=== PATIENT | male | born 1960 | race Caucasian/White ===

== ENCOUNTER 2018-11-08 11:57 | Observation (INO) ==
[2018-11-08] MEDS ORDERED: 0.9 % Sodium Chloride 1,000 ML ONE (12:23)
[2018-11-08] MEDS ORDERED: 0.9 % Sodium Chloride 1,000 ML IVC ONE (12:28)
--- NOTE | 2018-11-08 12:32 | Emergency Department Note ---
Disposition Clinical Impression: GI bleed Qualifiers: GI bleed type/associated pathology: unspecified gastrointestinal hemorrhage type Qualified Code(s): K92.2 - Gastrointestinal hemorrhage, unspecified Hypotension Qualifiers: Hypotension type: unspecified hypotension type Qualified Code(s): I95.9 - Hypotension, unspecified Renal failure Qualifiers: Renal failure chronicity: acute on chronic Acute renal failure type: unspecified Chronic kidney disease stage: unspecified stage Qualified Code(s): N17.9 - Acute kidney failure, unspecified; N18.9 - Chronic kidney disease, unspecified Disposition: Admitted As Inpatient Condition: Fair Time of Disposition: 14:21 General Adult HPI - General Stated complaint: Sepsis Eval Time Seen by Provider: 11/08/18 12:15 Nursing Notes Reviewed: Yes Vital Signs Reviewed: Yes - History of Present Illness HPI Narrative: Patient did have aortic valve replacement in 2003 and does take warfarin and does go to the Coumadin clinic but today was at the thyroid clinic and it was noticed that his blood pressure was 85 systolic. He presents today with feelings of weakness which is generalized and a been going on for one week and constant and progressive and he also has had rectal bleeding during that time. He denies any fever. No respiratory symptoms. No medication has been used for the symptoms. Social history: Nonsmoker but does chew tobacco. Very occasional alcohol. No history of injection drug use - Related Data Home Medications Medication Instructions Recorded Confirmed Albuterol Sulfate [Albuterol 2 puff IH Q4HR PRN 11/08/18 11/08/18 Inhaler] Cholecalciferol (D-3) [Vitamin D] 1,000 unit PO DAILY 11/08/18 11/08/18 Latanoprost [Xalatan] 1 drop BOTH EYES HS 11/08/18 11/08/18 Levothyroxine Sodium [Levoxyl] 125 mcg PO DAILY 11/08/18 11/08/18 Lisinopril [Zestril] 20 mg PO DAILY 11/08/18 11/08/18 Magnesium Oxide [Magnesium] 400 mg PO DAILY 11/08/18 11/08/18 Metoprolol [Lopressor] 100 mg PO BID 11/08/18 11/08/18 Mometasone/Formoterol [Dulera 100 1 puff IH BID 11/08/18 11/08/18 Mcg/5 Mcg Inhaler] [place]-3/Dha/Epa/Fish Oil [Cvs Fish 1 cap PO BID 11/08/18 11/08/18 Oil 1,000 mg Softgel] Omeprazole [PriLOSEC] 20 mg PO DAILY 11/08/18 11/08/18 Paroxetine HCl [Paxil] 20 mg PO DAILY 11/08/18 11/08/18 Renal Vitamin [Renal Caps Softgel] 1 mg PO DAILY 11/08/18 11/08/18 Rosuvastatin Calcium [Crestor] 10 mg PO HS 11/08/18 11/08/18 Tamsulosin HCl [Flomax] 0.4 mg PO DAILY 11/08/18 11/08/18 Warfarin [Coumadin] 3 mg PO SUTUTHSA 11/08/18 11/08/18 Warfarin [Coumadin] 6 mg PO MOWEFR 11/08/18 11/08/18 Zolpidem [Ambien] 10 mg PO HS 11/08/18 11/08/18 Allergies Allergy/AdvReac Type Severity Reaction Status Date / Time morphine AdvReac Palpitation Verified 11/08/18 14:06 s Review of Systems: Constitutional: No fever Vision: No blurred vision ENT: No rhinorrhea Respiratory: No cough Allergic: No allergies : No blood in urine GI: + blood in stool Hematologic: No bruising Dermatologic: No skin rash Musculoskeletal: No pain in the extremities Neuro: No numbness of the extremities Past Medical History - Past Medical History Medical history: Reports: no medical history Surgical history: Reports: appendectomy, heart valve replacement, orthopedic, other Psychiatric history: Reports: depression - Social History Smoking Status: Never smoker Smokeless Tobacco Status: No Alcohol use: Reports: none Drug use: Reports: none Physical Exam CONSTITUTIONAL: Alert and oriented X3, well-nourished, tired and weak appearing, in no apparent distress HEAD: Normocephalic; atraumatic. EYES: PERRL, no scleral icterus. NOSE: The nose is normal in appearance without rhinorrhea RESP: Normal chest excursion with respiration; breath sounds clear and equal bilaterally; no wheezes, rhonchi, or rales CARD: Regular rhythm, without murmurs, rub or gallop ABD: Non-distended; non-tender, soft,without rigidity, rebound or guarding SKIN: Normal for age and race; warm and dry; no apparent lesions Rectal: No masses or lesions. Stool is brown on the glove Course Vital Signs Temperature 97.8 F 11/08/18 12:09 Pulse Rate 58 11/08/18 12:09 Respiratory Rate 18 11/08/18 12:09 Blood Pressure 86/62 11/08/18 12:09 O2 Sat by Pulse Oximetry 100 11/08/18 12:09 Temperature 97.8 F 11/08/18 12:09 Pulse Rate 59 11/08/18 13:06 Respiratory Rate 18 11/08/18 13:06 Blood Pressure 96/64 11/08/18 13:06 O2 Sat by Pulse Oximetry 100 11/08/18 13:06 Oxygen Delivery Oxygen Delivery Room Air Medical Decision Making - MDM Narrative Medical decision making narrative: Concern for GI bleed and the patient is given 1 L IV fluid as the current blood pressure is 86 systolic, CBC, BMP, type and screen, INR as he is on warfarin and I did review the previous records showing his INR was 2.1 on October 27 of this year. Results pending. The patient will be admitted. He is mentating well. 1232 I did review the patient's test results. He is not anemic but was hypotensive and does have a GI bleed and he is anticoagulated with a elevated INR. The patient because of his normal hemoglobin will have his Coumadin held by will not actively reverse at this time with PCC because he does have a prosthetic aortic valve and this will place him at risk of clot and he is hemodynamically stable with the IV fluids and based on his hemoglobin level. He does have acute on chronic renal failure. I did write for intravenous protonix 40mg. I will speak with the hospitalist about admission. 1353 I did review the patient's test results and spoke with the hospitalist accepts the patient for admission the patient does have worsening renal failure, he does have a GI bleed. We are in agreement with holding off on any reversal of anticoagulation at this time and we will just hold the warfarin and monitor the patient closely. 1421 - Medical Records Medical records reviewed: Yes I reviewed the patient's medical records. - Lab Data Lab results reviewed: Yes I reviewed the patient's lab results. Result diagrams: 11/08/18 12:25 11/08/18 12:25 Lab Results 11/08/18 11/08/18 11/08/18 Range/Units 12:24 12:25 12:25 WBC 9.2 (4.3-11.1) K/mcL RBC 5.24 (4.19-5.50) M/mcL Hgb 15.1 (12.9-16.9) g/dL Hct 46.2 (37.5-50.1) % MCV 88.2 (83.0-100.0) fL MCH 28.8 (28.0-33.3) pg MCHC 32.7 (31.6-35.5) g/dL RDW 14.0 (11.5-14.5) % Plt Count 171 (140-400) K/mcL MPV 11.7 (9.4-12.4) fL PT (9.4-12.1) Seconds INR Sodium 132 L (136-145) mEq/L Potassium 4.3 (3.5-5.1) mEq/L Chloride 102 (98-107) mEq/L Carbon Dioxide 23 (23-29) mEq/L BUN 32 H (6-20) mg/dL Creatinine 1.70 H (0.70-1.30) mg/dL Est GFR ( Amer) 51 L (> 60) Est GFR (Non-Af Amer) 42 L (> 60) BUN/Creatinine Ratio 19 (6-26) Glucose 383 H (70-105) mg/dL Calculated Osmolality 297 (280-300) Calcium 8.9 (8.6-10.3) mg/dL Stool Occult Bld Scrn Positive A (Negative) Specimen Rejected Blood Type Antibody Screen 11/08/18 11/08/18 11/08/18 Range/Units 12:25 12:25 12:54 WBC (4.3-11.1) K/mcL RBC (4.19-5.50) M/mcL Hgb (12.9-16.9) g/dL Hct (37.5-50.1) % MCV (83.0-100.0) fL MCH (28.0-33.3) pg MCHC (31.6-35.5) g/dL RDW (11.5-14.5) % Plt Count (140-400) K/mcL MPV (9.4-12.4) fL PT 58.4 H* (9.4-12.1) Seconds INR 5.2 H* Sodium (136-145) mEq/L Potassium (3.5-5.1) mEq/L Chloride (98-107) mEq/L Carbon Dioxide (23-29) mEq/L BUN (6-20) mg/dL Creatinine (0.70-1.30) mg/dL Est GFR ( Amer) (> 60) Est GFR (Non-Af Amer) (> 60) BUN/Creatinine Ratio (6-26) Glucose (70-105) mg/dL Calculated Osmolality (280-300) Calcium (8.6-10.3) mg/dL Stool Occult Bld Scrn (Negative) Specimen Rejected Volume Blood Type B NEGATIVE Antibody Screen NEGATIVE - Radiology Data Radiology results reviewed: Yes I reviewed the patient's radiology results. Critical Care Time Critical Care Time: Yes Total Critical Care Time: 30 Attestation: I did spend 30 minutes of critical care time with this patient was hypotensive, had a GI bleed on anticoagulation, management of elevated INR, acute on chronic renal failure, administration of intravenous protonix and discussion with the hospitalist
[2018-11-08 12:37] LABS: Hematocrit 46.2 % (37.5-50.1); Hemoglobin 15.1 g/dL (12.9-16.9); Mean Corpuscular HGB Conc 32.7 g/dL (31.6-35.5); Mean Corpuscular Hemoglobin 28.8 pg (28.0-33.3); Mean Corpuscular Volume 88.2 fL (83.0-100.0); Mean Platelet Volume 11.7 fL (9.4-12.4); Platelet Count 171 K/mcL (140-400); Red Blood Count 5.24 M/mcL (4.19-5.50)
[2018-11-08 13:02] LABS: Calcium 8.9 mg/dL (8.6-10.3); Potassium 4.3 mEq/L (3.5-5.1)
[2018-11-08 13:43] LABS: INR 5.2; Prothrombin Time 58.4 Seconds (9.4-12.1)
[2018-11-08] MEDS ORDERED: Pantoprazole 40 MG VIAL IVP ONE (13:46)
[2018-11-08] MEDS ORDERED: Naloxone 0.4 MG/ML INJ IVP PRN (14:11)
[2018-11-08] MEDS ORDERED: Ondansetron 4 MG/2 ML VIAL IVP PRN (14:11)
[2018-11-08] MEDS ORDERED: 0.9 % Sodium Chloride 500 ML IVC PRN (14:29)
--- NOTE | 2018-11-08 14:34 | Internal Med History&Physical ---
Date of Encounter: 11/08/18 Time of Encounter: 14:00 Internal Medicine - H&P: HPI Chief complaint: Hematochezia Admitted From: Home History of present illness: Mr. Cheung is a 58 year old male with history of aortic valve replacement on Coumadin, hypothyroidism, hypertension, CKD stage 3, fatty liver, who presented from anticoagulation clinic due to low BP. He also complained of intermittent hematochezia/BRBPR for the last week or so as well. Associated with generalized weakness. Denies any chest pain, lightheadedness, shortness of breath, cough, sputum production, fever/chills, palpitation, or leg swelling. No abdominal pain, nausea/vomiting, melena, hematemesis, or hemoptysis. No focal weakness/numbness or change in vision. Last EGD/colonoscopy in October 2013 at [facility] which were both unremarkable reportedly. In the ED, he was afebrile with BP 86/62. FOBT was positive with supratherapeutic INR of 5.2. However, Hb was 15.1 with normal Plt count. Cr 1.7 (baseline 1.3-4). He was given 1 L of normal saline as a bolus with subsequent improvement in his BP, Protonix 40 mg IV, and admitted for further management. Past Med Surg Social Fam HX - Past Medical History Medical history: COPD, dialysis, hypertension Additional medical history: NEUROPATHY. EMPHYSEMA. HEMORRHAGE OF GI TRACT Psychiatric history: depression - Past Surgical History Surgical History: appendectomy, heart valve replacement, orthopedic, other Additional surgical history: LAMINECTOMY, R knee, 2 open heart, 2 neck surgeries. chronic neck pain. broken neck x 2. Aortic valve replacement - Social History Smoking Status: Never smoker Smokeless Tobacco Status: Yes Alcohol use: rarely Drug use: none - Additional Family History Additional family history: No family history of GI malignancy Internal Medicine - H&P: Meds Albuterol Sulfate [Albuterol Inhaler] 2 puff IH Q4HR PRN 11/08/18 [History] Cholecalciferol (D-3) [Vitamin D] 1,000 unit PO DAILY 11/08/18 [History] Latanoprost [Xalatan] 1 drop BOTH EYES HS 11/08/18 [History] Levothyroxine Sodium [Levoxyl] 125 mcg PO DAILY 11/08/18 [History] Lisinopril [Zestril] 20 mg PO DAILY 11/08/18 [History] Magnesium Oxide [Magnesium] 400 mg PO DAILY 11/08/18 [History] Metoprolol [Lopressor] 100 mg PO BID 11/08/18 [History] Mometasone/Formoterol [Dulera 100 Mcg/5 Mcg Inhaler] 1 puff IH BID 11/08/18 [History] [place]-3/Dha/Epa/Fish Oil [Cvs Fish Oil 1,000 mg Softgel] 1 cap PO BID 11/08/18 [History] Omeprazole [PriLOSEC] 20 mg PO DAILY 11/08/18 [History] Paroxetine HCl [Paxil] 20 mg PO DAILY 11/08/18 [History] Renal Vitamin [Renal Caps Softgel] 1 mg PO DAILY 11/08/18 [History] Rosuvastatin Calcium [Crestor] 10 mg PO HS 11/08/18 [History] Tamsulosin HCl [Flomax] 0.4 mg PO DAILY 11/08/18 [History] Warfarin [Coumadin] 3 mg PO SUTUTHSA 11/08/18 [History] Warfarin [Coumadin] 6 mg PO MOWEFR 11/08/18 [History] Zolpidem [Ambien] 10 mg PO HS 11/08/18 [History] Allergy/AdvReac Type Severity Reaction Status Date / Time morphine AdvReac Palpitation Verified 11/08/18 14:06 s All Systems PM: A 10-system review of systems was performed and is negative for pertinent findings except as documented above in the HPI. - Constitutional Vitals: Temp Pulse Resp BP Pulse Ox 97.8 F 59 18 96/64 100 11/08/18 12:09 11/08/18 13:06 11/08/18 13:06 11/08/18 13:06 11/08/18 13:06 Exam: General: Alert and oriented, not in acute distress. HEENT:EOMI, pupils equal, round and reactive. No conjunctival pallor Cardiovascular: regular rhythm and rate Lungs: clear to auscultation, no wheezes/rales Abdomen:Soft, non-tender, no rigidity. Declines rectal exam Extremities:No deformity or swelling Neurological:Normal cognition and motor skills. Non-focal Skin:Normal color, no rash, no lesions. Pulses:Carotid and radial pulses normal +2. Rest of the physical exam is non contributory Internal Med - H&P Results - Labs CBC & Chem 7: 11/08/18 12:25 11/08/18 12:25 Labs: Short CBC 11/08/18 Range/Units 12:25 WBC 9.2 (4.3-11.1) K/mcL Hgb 15.1 (12.9-16.9) g/dL Hct 46.2 (37.5-50.1) % Plt Count 171 (140-400) K/mcL BMP 11/08/18 12:25 Sodium 132 L Potassium 4.3 Chloride 102 Carbon Dioxide 23 BUN 32 H Creatinine 1.70 H Glucose 383 H Calcium 8.9 - Assessment and Plan (1) GI bleed Current Visit: Yes Status: Acute Assessment and plan: Patient with history of aortic valve replacement on Coumadin presented with intermittent hematochezia associated with supratherapeutic INR of 5.2 also hypotensive on presentation, improved with IVF however, Hb is 15.1 which is at his baseline. Doubtful that his hypotension is entirely driven by ongoing GI bleed Last EGD/colonoscopy was at [facility] in 10/2013. Reported to be negative for both but will obtain old records given IV protonix 40mg, continue BID trend H&H Q6, daily INR. Hold Coumadin discussed with Dr. Garcia for possible EGD/colonoscopy, will keep him NPO till his evaluation Qualifiers: GI bleed type/associated pathology: unspecified gastrointestinal hemorrhage type Qualified Code(s): K92.2 - Gastrointestinal hemorrhage, unspecified (2) Hypotension Current Visit: Yes Status: Acute Assessment and plan: Hold off on antihypertensives mIVF + PRN fluid boluses Qualifiers: Hypotension type: hypotension due to hypovolemia Qualified Code(s): I95.89 - Other hypotension; E86.1 - Hypovolemia (3) History of aortic valve replacement Current Visit: Yes Status: Chronic Assessment and plan: Coumadin on hold as above (4) CKD (chronic kidney disease) stage 3, GFR 30-59 ml/min Current Visit: Yes Status: Chronic Assessment and plan: Baseline creatinine around 1.3-1.4, 1.7 on presentation. Acute on chronic kidney failure stage 3 liikely driven by GIB IVF, transfuse if Hb further drops rapidly or < 7 avoid nephrotoxins (5) DM type 2 (diabetes mellitus, type 2) Current Visit: No Status: Chronic Assessment and plan: Does not appear to be on OHGA at home although his A1c was 8.1 on 09/2018 low dose sliding scale Qualifiers: Diabetes mellitus parts counterman insulin use: without parts counterman use Diabetes mellitus complication status: with kidney complications Diabetes mellitus complication detail: with chronic kidney disease Chronic kidney disease stage: stage 2 (mild) Qualified Code(s): E11.22 - Type 2 diabetes mellitus with diabetic chronic kidney disease; N18.2 - Chronic kidney disease, stage 2 (mild); N18.2 - Chronic kidney disease, stage 2 (mild) (6) Hypothyroidism Current Visit: No Status: Chronic Assessment and plan: Holding home meds while NPO Qualifiers: Hypothyroidism type: postablative Qualified Code(s): E89.0 - Postprocedural hypothyroidism (7) DVT prophylaxis Current Visit: Yes Status: Acute Assessment and plan: Supratherapeutic INR - Time Spent With Patient Total time spent is greater than 50% in coordination of care (as documented) at patient's floor/unit and/or counseling patient: Greater than 35 minutes
[2018-11-08] MEDS ORDERED: Dextrose Gel 15 GM/37.5 ML TUBE PO PRN ×2 (14:42)
[2018-11-08] MEDS ORDERED: *HR* Dextrose 50 % in Water (Syg) 50 ML SYRINGE IVP PRN (14:42)
[2018-11-08] MEDS ORDERED: D5% in Water 1,000 ML IVC PRN (14:42)
[2018-11-08] MEDS: Ringers Solution, Lactated 1,000 ML IVC SCH (16:27)
[2018-11-08] MEDS: Pantoprazole 40 MG VIAL IVP SCH (18:09)
[2018-11-08] MEDS: Insulin LISPRO 300 UNITS/3 ML VIAL SQ SCH (18:09)
--- NOTE | 2018-11-08 18:15 | Internal Medicine Consult Note ---
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 I have recommended both upper and lower endoscopy to exclude reasons for GI bleeding, there may be a good chance we do not find anything. This may be somewhat constant as well by taking fish oil. Differential to include occult ulceration, tumor less likely, diverticular bleeding. AVMs also to be considered I have discussed risks and movements of upper and lower endoscopy, he has signed consents today. I will pursue these most likely in roughly 24 hours, as he is stable, not bleeding at this time, I will give a little vitamin K, but not tremendous amounts due to the need for chronic anticoagulation the future. (2) Essential hypertension Current Visit: Yes Status: Acute Assessment and plan: Now stable, with one bout in the ER of low blood pressure. No drop in hemoglobin noted. (3) CKD (chronic kidney disease) stage 3, GFR 30-59 ml/min Current Visit: Yes Status: Chronic (4) History of aortic valve replacement Current Visit: Yes Status: Chronic (5) Hypothyroidism Current Visit: No Status: Chronic Qualifiers: Hypothyroidism type: postablative Qualified Code(s): E89.0 - Postprocedural hypothyroidism (6) Elevated INR (international normalized ratio) due to prior anticoagulant medication ingestion Current Visit: Yes Status: Acute Assessment and plan: 5 mg of vitamin K today, recheck in the a.m. Internal Medicine - CN: HPI - Data of Consult Patient: new to practice Requesting Physician: Sonido Goff MD - Consult Narrative Reason for consult: Rectal bleeding History of present illness: Mr. Cheung is a 58 year old male presented to the emergency room today, after appreciating one week of intermittent rectal bleeding, today developed some lightheadedness. He denies any abdominal pain per se, and no syncope. Last upper and lower endoscopy roughly 5 years ago. He has been on PPI therapy for reflux. He has had no weight loss, no dysphagia, no recent nonsteroidal use, his INR, was found to be over 5, he does report being finished with an antibiotic recently roughly 3 days ago. Last blood per rectum, was roughly yesterday about 24 hours ago. No should be made of one episode of low blood pressure in the ED, now back to baseline. Past Med Surg Social Fam HX - Past Medical History Medical history: COPD, dialysis, hypertension Additional medical history: NEUROPATHY. EMPHYSEMA. HEMORRHAGE OF GI TRACT. CK D stage III Psychiatric history: depression - Past Surgical History Surgical History: appendectomy, heart valve replacement, orthopedic, other Additional surgical history: LAMINECTOMY, R knee, 2 open heart, 2 neck surgeries. chronic neck pain. broken neck x 2. Aortic valve replacement - Social History Smoking Status: Never smoker Smokeless Tobacco Status: Yes Alcohol use: rarely Drug use: none - Constitutional Constitutional: weakness, no anorexia, no chills, no excessive sweating, no night sweats - Cardiovascular Cardiovascular ROS IM: lightheadedness, no chest pain, no diaphoresis, no dyspnea, no irregular heart rhythm, no syncope - Respiratory Respiratory: cough, no dyspnea, no wheezing - Gastrointestinal Gastrointestinal: hematochezia, nausea, no abdominal pain, no heartburn, no hematemesis, no melena, no vomiting - Integumentary Integumentary IM: no rash - Neurological Neurological ROS: no abnormal gait, no loss of vision, no memory loss - Hematologic/Lymphatic Hematologic/Lymphatic: no easy bleeding, no easy bruising, no lymphadenopathy Internal Medicine - CN: Meds Albuterol Sulfate [Albuterol Inhaler] 2 puff IH Q4HR PRN 11/08/18 [History] Cholecalciferol (D-3) [Vitamin D] 1,000 unit PO DAILY 11/08/18 [History] Latanoprost [Xalatan] 1 drop BOTH EYES HS 11/08/18 [History] Levothyroxine Sodium [Levoxyl] 125 mcg PO DAILY 11/08/18 [History] Lisinopril [Zestril] 20 mg PO DAILY 11/08/18 [History] Magnesium Oxide [Magnesium] 400 mg PO DAILY 11/08/18 [History] Metoprolol [Lopressor] 100 mg PO BID 11/08/18 [History] Mometasone/Formoterol [Dulera 100 Mcg/5 Mcg Inhaler] 1 puff IH BID 11/08/18 [History] [place]-3/Dha/Epa/Fish Oil [Cvs Fish Oil 1,000 mg Softgel] 1 cap PO BID 11/08/18 [History] Omeprazole [PriLOSEC] 20 mg PO DAILY 11/08/18 [History] Paroxetine HCl [Paxil] 20 mg PO DAILY 11/08/18 [History] Renal Vitamin [Renal Caps Softgel] 1 mg PO DAILY 11/08/18 [History] Rosuvastatin Calcium [Crestor] 10 mg PO HS 11/08/18 [History] Tamsulosin HCl [Flomax] 0.4 mg PO DAILY 11/08/18 [History] Warfarin [Coumadin] 3 mg PO SUTUTHSA 11/08/18 [History] Warfarin [Coumadin] 6 mg PO MOWEFR 11/08/18 [History] Zolpidem [Ambien] 10 mg PO HS 11/08/18 [History] Allergy/AdvReac Type Severity Reaction Status Date / Time morphine AdvReac Palpitation Verified 11/08/18 14:06 s Internal Med - CN: Exam - Constitutional Vitals: Temp Pulse Resp BP Pulse Ox 97.8 F 57 18 116/76 98 11/08/18 15:06 11/08/18 15:06 11/08/18 15:06 11/08/18 15:06 11/08/18 15:06 General appearance IM: Present: A&O X 3, pleasant, no acute distress, answers questions appropriately Exam: Resting comfortably, upon my arrival. Easily awakened. No new complaints at this times - Head Head exam: Present: normal inspection - Eye Eye exam: Present: PERRL, conjuntiva pink, sclera anicteric. Absent: scleral icterus - ENT ENT exam: Present: mucous membranes moist - Neck Neck exam general surgery: Present: full ROM, supple, trachea midline. Absent: nuchal rigidity - Respiratory Respiratory exam: Present: CTAB - Cardiovascular Cardiovascular exam IM: Present: +S1, +S2 Additional comments: Mechanical S2 noted - GI/Abdominal GI/Abdominal exam IM: Present: normal bowel sounds, soft, no peritoneal signs. Absent: mass, rebound, rigid, splenomegaly, tenderness - Rectal Rectal exam: Present: deferred - Extremities Exam Extremities exam IM: Present: full ROM, normal inspection. Absent: pedal edema, tenderness - Neurological Exam Neurological exam: Present: CN II-XII intact, oriented X3 Internal Medicine - CN: Reslt - Labs CBC & Chem 7: 11/08/18 12:25 11/08/18 12:25 Labs: Short CBC 11/08/18 Range/Units 12:25 WBC 9.2 (4.3-11.1) K/mcL Hgb 15.1 (12.9-16.9) g/dL Hct 46.2 (37.5-50.1) % Plt Count 171 (140-400) K/mcL BMP 11/08/18 12:25 Sodium 132 L Potassium 4.3 Chloride 102 Carbon Dioxide 23 BUN 32 H Creatinine 1.70 H Glucose 383 H Calcium 8.9 - ABG Interpretation ABG results: PT/INR, D-dimer PT 58.4 Seconds (9.4-12.1) H* 11/08/18 12:54 Consult Discharge Plan - Plan Referrals: yMa Pena APN [Primary Care Provider] -
[2018-11-08 19:13] LABS: Hematocrit 43.1 % (37.5-50.1); Hemoglobin 14.7 g/dL (12.9-16.9)
[2018-11-08] MEDS: Latanoprost 2.5 ML BOTTLE BOTH EYES SCH (20:11)
[2018-11-08] MEDS: Budesonide/Formoterol 80/4.5 MDI IH SCH (20:16)
[2018-11-09] MEDS: Ringers Solution, Lactated 1,000 ML IVC SCH (00:40)
[2018-11-09] MEDS: Insulin LISPRO 300 UNITS/3 ML VIAL SQ SCH ×5 (00:40→16:44)
[2018-11-09 02:06] LABS: Basophils % 0.3 %; Eosinophils # 0.1 K/mcL (0.0-0.6); Hemoglobin 13.3 g/dL (12.9-16.9); Immature Granulocytes % 0.5 % (0-4); Lymphocytes # 1.1 K/mcL (0.6-4.6); Mean Corpuscular HGB Conc 33.3 g/dL (31.6-35.5); Mean Corpuscular Hemoglobin 28.8 pg (28.0-33.3); Mean Corpuscular Volume 86.6 fL (83.0-100.0); Mean Platelet Volume 11.9 fL (9.4-12.4); Monocytes # 0.6 K/mcL (0.0-1.3); Monocytes % 9.7 %; Neutrophils # 4.8 K/mcL (1.6-8.9); Platelet Count 132 K/mcL (140-400); Red Blood Count 4.62 M/mcL (4.19-5.50); Red Cell Distribution Width 13.8 % (11.5-14.5); Segmented Neutrophils % 71.5 %
[2018-11-09 02:16] LABS: INR 1.9; Prothrombin Time 21.7 Seconds (9.4-12.1)
[2018-11-09 02:28] LABS: BUN/Creatinine Ratio 17 (6-26); Blood Urea Nitrogen 20 mg/dL (6-20); Calcium 8.1 mg/dL (8.6-10.3); Carbon Dioxide 19 mEq/L (23-29); Chloride 111 mEq/L (98-107); Glucose 219 mg/dL (70-105); Osmolality,Calculated 291 (280-300); Potassium 3.8 mEq/L (3.5-5.1); Sodium 136 mEq/L (136-145); eGFR For Non-African Americans > 60 (> 60)
[2018-11-09] MEDS: Pantoprazole 40 MG VIAL IVP SCH ×2 (06:03→18:35)
[2018-11-09] MEDS: Budesonide/Formoterol 80/4.5 MDI IH SCH ×2 (08:11→20:01)
[2018-11-09] MEDS ORDERED: Levothyroxine Sodium 100 MCG VIAL IVP SCH (09:00)
--- NOTE | 2018-11-09 09:20 | Event Note ---
Date of Encounter: 11/09/18 Time of Encounter: 09:18 Resting in bed.. no complaints. Has seen very little blood per rectum since my visit last PM.. Vitals have remained stable, and he has good UO. Abd. is soft, non- InRtender, active bowel sounds. Will plan colon prep today, then EGD and Colon tomorrow at 11:00. All questions answered. INR at 1.9 this AM
[2018-11-09 10:09] LABS: Hemoglobin 13.6 g/dL (12.9-16.9)
--- NOTE | 2018-11-09 11:23 | Internal Med Progress Note ---
Hospitalist Progress Note - Encounter Date of Encounter: 11/09/18 Time of Encounter: 08:30 - Subjective Interval History: events overnight. Hemoglobin dropped from 15.1 to 13.3. Pt did not have any BM since the admission hence unable to tell me about enema, hematochezia, or bright red blood per rectum. Blood pressure and kidney function improved with IVF overnight. No chest pain or shortness of breath. - Exam Vitals: Temp Pulse Resp BP Pulse Ox 98.2 F 66 18 115/70 97 11/09/18 07:39 11/09/18 07:39 11/09/18 08:11 11/09/18 07:39 11/09/18 08:11 Exam: General: Alert and oriented, not in acute distress. Cardiovascular: regular rhythm and rate Lungs: clear to auscultation, no wheezes/rales Abdomen:Soft, non-tender, no rigidity. Extremities:No deformity or swelling Neurological:Normal cognition and motor skills. Non-focal - Assessment and Plan (1) Hematochezia Current Visit: Yes Status: Acute Assessment and Plan: Patient with history of aortic valve replacement on Coumadin presented with intermittent hematochezia associated with supratherapeutic INR of 5.2 also hypotensive on presentation, improved with IVF as well as downtrending Cr Hb 15.1 -> 13.3 overnight Last EGD/colonoscopy was at OSH in 10/2013. Reported to be negative for both but will obtain old records given IV protonix 40mg, continue BID for now INR improved to 1.9 after 5mg of Vit K yesterday. Continue to monitor daily for EGD/colonoscopy tomorrow after bowel prep today (2) Elevated INR (international normalized ratio) due to prior anticoagulant medication ingestion Current Visit: Yes Status: Acute Assessment and Plan: 1 Dose of vitamin K was given overnight, 1.9 today (3) Hypothyroidism Current Visit: No Status: Chronic Assessment and Plan: TSH 0.9 Continue home dose of levothyroxine (4) CKD (chronic kidney disease) stage 3, GFR 30-59 ml/min Current Visit: Yes Status: Chronic Assessment and Plan: Baseline creatinine around 1.2-3, 1.7 on presentation. Acute on chronic kidney failure stage 3 likely driven by GIB improved with IVF, encourage oral intake avoid nephrotoxins (5) History of aortic valve replacement Current Visit: Yes Status: Chronic Assessment and Plan: Coumadin on hold as above (6) DM type 2 (diabetes mellitus, type 2) Current Visit: No Status: Chronic Assessment and Plan: Does not appear to be on OHGA at home although his A1c was 8.1 on 09/2018 low dose sliding scale (7) Essential hypertension Current Visit: Yes Status: Chronic Assessment and Plan: Continue to hold home meds (8) DVT prophylaxis Current Visit: Yes Status: Acute Assessment and Plan: EPCD - Time Spent with Patient Total time spent is greater than 50% in coordination of care (as documented) at patient's floor/unit and/or counseling patient: 25 - 35 minutes Plan of Care Discussed with: patient (discussed with Dr. Garcia) Internal Medicine: Result - Labs CBC & Chem 7: 11/09/18 08:51 11/09/18 01:28 Labs: Short CBC 11/08/18 11/08/18 11/09/18 Range/Units 12:25 19:00 01:28 WBC 9.2 6.6 (4.3-11.1) K/mcL Hgb 15.1 14.7 13.3 (12.9-16.9) g/dL Hct 46.2 43.1 40.0 (37.5-50.1) % Plt Count 171 132 L (140-400) K/mcL Neutrophils # 4.8 (1.6-8.9) K/mcL 11/09/18 Range/Units 08:51 WBC (4.3-11.1) K/mcL Hgb 13.6 (12.9-16.9) g/dL Hct 41.0 (37.5-50.1) % Plt Count (140-400) K/mcL Neutrophils # (1.6-8.9) K/mcL BMP 11/08/18 11/09/18 12:25 01:28 Sodium 132 L 136 Potassium 4.3 3.8 Chloride 102 111 H Carbon Dioxide 23 19 L BUN 32 H 20 Creatinine 1.70 H 1.15 Glucose 383 H 219 H Calcium 8.9 8.1 L - ABG Interpretation ABG results: PT/INR, D-dimer PT 21.7 Seconds (9.4-12.1) H D 11/09/18 01:28 Consult Discharge Plan - Plan Referrals: Mya Pena APN [Primary Care Provider] - (3) Hypothyroidism Qualifiers: Hypothyroidism type: postablative Qualified Code(s): E89.0 - Postprocedural hypothyroidism (6) DM type 2 (diabetes mellitus, type 2) Qualifiers: Diabetes mellitus assisted insulin use: without assisted use Diabetes mellitus complication status: with kidney complications Diabetes mellitus complication detail: with chronic kidney disease Chronic kidney disease stage: stage 2 (mild) Qualified Code(s): E11.22 - Type 2 diabetes mellitus with diabetic chronic kidney disease; N18.2 - Chronic kidney disease, stage 2 (mild); N18.2 - Chronic kidney disease, stage 2 (mild)
[2018-11-09] MEDS ORDERED: PEG/Electrolytes/Ascorbic Acid 1 EACH POWD.PACK PO ONE (12:00)
[2018-11-09] MEDS ORDERED: Insulin LISPRO 300 UNITS/3 ML VIAL SQ SCH (21:00)
[2018-11-09] MEDS: Latanoprost 2.5 ML BOTTLE BOTH EYES SCH (21:20)
[2018-11-10 05:46] LABS: Hematocrit 40.6 % (37.5-50.1); Hemoglobin 13.2 g/dL (12.9-16.9); Mean Corpuscular HGB Conc 32.5 g/dL (31.6-35.5); Mean Corpuscular Hemoglobin 28.3 pg (28.0-33.3); Mean Corpuscular Volume 86.9 fL (83.0-100.0); Mean Platelet Volume 11.5 fL (9.4-12.4); Platelet Count 130 K/mcL (140-400); Red Blood Count 4.67 M/mcL (4.19-5.50); Red Cell Distribution Width 13.8 % (11.5-14.5)
[2018-11-10] MEDS: Pantoprazole 40 MG VIAL IVP SCH (05:56)
[2018-11-10 06:02] LABS: INR 1.2; Prothrombin Time 13.1 Seconds (9.4-12.1)
[2018-11-10 06:03] LABS: BUN/Creatinine Ratio 11 (6-26); Blood Urea Nitrogen 12 mg/dL (6-20); Calcium 8.4 mg/dL (8.6-10.3); Carbon Dioxide 20 mEq/L (23-29); Chloride 111 mEq/L (98-107); Glucose 193 mg/dL (70-105); Osmolality,Calculated 297 (280-300); Potassium 3.2 mEq/L (3.5-5.1); Sodium 141 mEq/L (136-145); eGFR For Non-African Americans > 60 (> 60)
[2018-11-10] MEDS: Insulin LISPRO 300 UNITS/3 ML VIAL SQ SCH ×2 (07:28→11:03)
[2018-11-10] MEDS: Budesonide/Formoterol 80/4.5 MDI IH SCH (07:51)
[2018-11-10] MEDS ORDERED: Potassium Chloride 40 MEQ, Lidocaine 1% 2 ML in D5% in Water 500 ML IVPB ONE (08:13)
[2018-11-10] MEDS ORDERED: *HR* FentaNYL (PF) 100 MCG/2 ML VIAL ONE (10:58)
[2018-11-10] MEDS ORDERED: *HR* Midazolam HCl 5 MG/5 ML VIAL IVP ONE ×2 (10:58→11:06)
[2018-11-10] MEDS ORDERED: Tetracaine/Benzocaine/Butamben 1 SPRAY AEROSOL MM ONE (11:06)
[2018-11-10] MEDS ORDERED: Simethicone 40 MG/0.6 ML MLS IR ONE (11:06)
[2018-11-10] MEDS ORDERED: *HR* FentaNYL (PF) 100 MCG/2 ML VIAL IVP ONE (11:06)
--- NOTE | 2018-11-10 11:07 | History & Physical Report ---
Date of Encounter: 11/10/18 Time of Encounter: 11:07 24 Hour HP Update - Instructions Instructions: If the History and Physical is less than 30 days old and was completed prior to A.M. admission and or procedure and has NOT been updated on calendar day of procedure please complete this update prior to performing procedure. - Update Patient reports changes in Medical Condition: No Changes in examination, assessment, or condition: No Changes in Medication: No Surgery Remains Indicated: Yes Consent for Planned Operative Procedure(s) Verified: Yes
--- NOTE | 2018-11-10 11:07 | Pre-Sedation Evaluation ---
Pre-sedation evaluation - Pre-sedation checklist Date of procedure: 11/10/18 Procedure: Colonoscopy and EGD Recent Vitals: Last Vital Signs Temp 97.9 F 11/10/18 10:57 Pulse 65 11/10/18 10:57 Resp 16 11/10/18 10:57 BP 112/60 11/10/18 10:57 Pulse Ox 96 11/10/18 10:57 H&P (including ROS) documented in medical record: Yes Previous reaction to sedatives/anesthetics: No Dietary Status: NPO after Midnight Airway Assessment: Patient can open mouth completely, TMJ function normal Dentition: No loose teeth or bridges, full dentition Possible difficult airway: No ASA Classification *see protocol: CLASS II-Mild systemic disease Plan of Care: Pt appropriate candidate for procedure/moderate/conscious sedation
--- NOTE | 2018-11-10 11:45 | Discharge Summary ---
- NOTES TO OUTPATIENT PROVIDER Notes to Outpatient Provider: Follow-up H&H and PT/INR in 3 days Date of Encounter: 11/10/18 Time of Encounter: 08:00 - Discharge Diagnosis (1) Hematochezia Priority: Primary Status: Acute (2) Elevated INR (international normalized ratio) due to prior anticoagulant medication ingestion Priority: Secondary Status: Acute (3) Hypothyroidism Priority: Secondary Status: Chronic Qualifiers: Hypothyroidism type: postablative Qualified Code(s): E89.0 - Postprocedural hypothyroidism (4) CKD (chronic kidney disease) stage 3, GFR 30-59 ml/min Priority: Secondary Status: Chronic (5) History of aortic valve replacement Priority: Secondary Status: Chronic (6) DM type 2 (diabetes mellitus, type 2) Priority: Secondary Status: Chronic Qualifiers: Diabetes mellitus top cager insulin use: without detention use Diabetes mellitus complication status: with kidney complications Diabetes mellitus complication detail: with chronic kidney disease Chronic kidney disease stage: stage 2 (mild) Qualified Code(s): E11.22 - Type 2 diabetes mellitus with diabetic chronic kidney disease; N18.2 - Chronic kidney disease, stage 2 (mild); N18.2 - Chronic kidney disease, stage 2 (mild) (7) Essential hypertension Priority: Secondary Status: Chronic (8) DVT prophylaxis Priority: Secondary Status: Acute Hospital course: Mr. Cheung is a 58 year old male with history of aortic valve replacement on Coumadin, hypothyroidism, hypertension, CKD stage 3, fatty liver, DM, who was admitted for hypotension, acute on chronic kidney failure stage 3, and questionable GI bleed in the setting of supratherapeutic INR. Reversed with Vit K 5 mg. Hb 15.1 - 13.2 and BP improved with IVF as well as downtrending Cr. No further episodes of GI bleed was noted during his hospital stay. EGD/Colonoscopy was done on 11/10 which did not show any evidence of active bleed nor suspicious culprit for it. On hindsight, it appears that his hypotension was largely driven by dehydration as evidenced by acute on chronic kidney failure, Hb trend with IV hydraion, lack of further episodes of GIB as well as significant findings on EGD/colonoscopy. Therefore, he will be discharged home on coumadin with lovenox bridging and repeat H&H/PT/INR with PCP follow up. He was advised to return to the ED immediately if he has recurrent episodes of GIB. Of note, case consultant informed me that the patient was supposed to be on 1 g of metformin twice a day for which the prescription was provided at the time of discharge. Discharge discussed with: patient, nurse, case management, datapower consultant - Time Spent with Patient Total time spent providing and/or coordinating discharge services: 34 mins - Discharge Medications Prescriptions: New Enoxaparin [Lovenox] 100 mg SQ Q12HR 7 Days #14 syr RX: metFORMIN [Glucophage] 1,000 mg PO BIDWM #120 tablet Continued RX: Albuterol Sulfate [Albuterol Inhaler] 2 puff IH Q4HR PRN PRN Reason: Shortness Of Breath RX: Cholecalciferol (D-3) [Vitamin D] 1,000 unit PO DAILY RX: Latanoprost [Xalatan] 1 drop BOTH EYES HS RX: Levothyroxine Sodium [Levoxyl] 125 mcg PO DAILY RX: Lisinopril [Zestril] 20 mg PO DAILY RX: Magnesium Oxide [Magnesium] 400 mg PO DAILY RX: Metoprolol [Lopressor] 100 mg PO BID RX: Mometasone/Formoterol [Dulera 100 Mcg/5 Mcg Inhaler] 1 puff IH BID RX: [place]-3/Dha/Epa/Fish Oil [[facility] Fish Oil 1,000 mg Softgel] 1 cap PO BID RX: Omeprazole [PriLOSEC] 20 mg PO DAILY RX: Paroxetine HCl [Paxil] 20 mg PO DAILY RX: Renal Vitamin [Renal Caps Softgel] 1 mg PO DAILY RX: Rosuvastatin Calcium [Crestor] 10 mg PO HS RX: Tamsulosin HCl [Flomax] 0.4 mg PO DAILY RX: Warfarin [Coumadin] 3 mg PO SUTUTHSA RX: Warfarin [Coumadin] 6 mg PO MOWEFR RX: Zolpidem [Ambien] 10 mg PO HS Home Medications: RX: Albuterol Sulfate [Albuterol Inhaler] 2 puff IH Q4HR PRN 11/08/18 [History] RX: Cholecalciferol (D-3) [Vitamin D] 1,000 unit PO DAILY 11/08/18 [History] RX: Latanoprost [Xalatan] 1 drop BOTH EYES HS 11/08/18 [History] RX: Levothyroxine Sodium [Levoxyl] 125 mcg PO DAILY 11/08/18 [History] RX: Lisinopril [Zestril] 20 mg PO DAILY 11/08/18 [History] RX: Magnesium Oxide [Magnesium] 400 mg PO DAILY 11/08/18 [History] RX: Metoprolol [Lopressor] 100 mg PO BID 11/08/18 [History] RX: Mometasone/Formoterol [Dulera 100 Mcg/5 Mcg Inhaler] 1 puff IH BID 11/08/18 [History] RX: [place]-3/Dha/Epa/Fish Oil [[facility] Fish Oil 1,000 mg Softgel] 1 cap PO BID 11/08/18 [History] RX: Omeprazole [PriLOSEC] 20 mg PO DAILY 11/08/18 [History] RX: Paroxetine HCl [Paxil] 20 mg PO DAILY 11/08/18 [History] RX: Renal Vitamin [Renal Caps Softgel] 1 mg PO DAILY 11/08/18 [History] RX: Rosuvastatin Calcium [Crestor] 10 mg PO HS 11/08/18 [History] RX: Tamsulosin HCl [Flomax] 0.4 mg PO DAILY 11/08/18 [History] RX: Warfarin [Coumadin] 3 mg PO SUTUTHSA 11/08/18 [History] RX: Warfarin [Coumadin] 6 mg PO MOWEFR 11/08/18 [History] RX: Zolpidem [Ambien] 10 mg PO HS 11/08/18 [History] Enoxaparin [Lovenox] 100 mg SQ Q12HR 7 Days #14 syr 11/10/18 [Rx] RX: metFORMIN [Glucophage] 1,000 mg PO BIDWM #120 tablet 11/10/18 [Rx] Allergies/Adverse Reactions: Allergy/AdvReac Type Severity Reaction Status Date / Time morphine AdvReac Palpitation Verified 11/08/18 14:06 s Date of admission: 11/08/18 14:06 Primary care physician: Mya Pena APN Consults: 11/08/18 14:27 Consult to Physician [CONS] Routine Consulting Provider: Adama Garcia Reason for Consult: hematochezia, FOBT +ve. Hypotensive on arrival but Hb 15.1 Call Completed: Yes - Constitutional Vitals: Temp Pulse Resp BP Pulse Ox 97.9 F 74 16 169/73 98 11/10/18 10:57 11/10/18 11:30 11/10/18 11:30 11/10/18 11:30 11/10/18 11:30 General appearance: Present: A&O X 3, pleasant, no acute distress, answers questions appropriately Exam: General: Alert and oriented, not in acute distress. Cardiovascular: regular rhythm and rate Lungs: clear to auscultation, no wheezes/rales Abdomen:Soft, non-tender, no rigidity. Extremities:No deformity or swelling Neurological:Normal cognition and motor skills. Non-focal - Patient Status Disposition: Home, Self-Care Condition: Fair Functional capacity at discharge: independent ambulation Overall status at discharge: patient is progressing back to baseline - Discharge Instructions Instructions: Chronic Hypertension (DC) Follow Up With: Mya Pena APN [Primary Care Provider] - Forms: ED Satisfaction Letter Additional Instructions: Resume coumadin with SQ lovenox. Repeat INR in 3 days time and stop lovenox if INR 2.5-3.5. Follow up with PCP and anticoagulation clinic Repeat H&H in 3 days - Diet and Activity Activity: resume usual activities as tolerated Diet: advance to your usual diet
[2018-11-10] MEDS ORDERED: *HR* Enoxaparin 100 MG/ML SYRINGE SQ ONE (11:48)
[2018-11-10] MEDS ORDERED: *HR* Warfarin 3 MG TABLET PO ONE (11:49)
[2018-11-10 14:30] VITALS: BP 120/73
--- NOTE | 2018-11-11 09:41 | Event Note ---
Date of Encounter: 11/10/18 Time of Encounter: 12:00 I had a discussion, prior to discharge with the hospitalist, recommendation was to provide IV heparin, due to the aortic valve. If he did bleed at this time, I would certainly allow us to find the bleeding a bit easier with a CT angiogram or angiogram if need be. If the patient remains stable, over the next 24 hours and I think he can be safely discharged on home Lovenox and Coumadin combination.
== END 2018-11-10 14:50 | disposition home or self-care (01) ==
LOC: EMEROOARM 11:57 → 2ANU 11:57 → SUATTDRO 14:06 → 2ANU 14:45
PROVIDERS: ADMIT Internal Medicine Nephrology; ATTEND Internal Medicine

== ENCOUNTER 2020-09-03 11:51 | Inpatient (IN) ==
[2020-09-03] MEDS ORDERED: Naloxone 0.4 MG/ML INJ IVP PRN (16:03)
[2020-09-03] MEDS ORDERED: Ondansetron 4 MG/2 ML VIAL IVP PRN (16:03)
[2020-09-03] MEDS ORDERED: *HR* Dextrose 50 % in Water (Vial) 50 ML VIAL IVP PRN (16:13)
[2020-09-03] MEDS ORDERED: D5% in Water 1,000 ML IVC PRN (16:13)
[2020-09-03] MEDS ORDERED: Dextrose Gel 15 GM/37.5 ML TUBE PO PRN ×2 (16:13)
[2020-09-03] MEDS ORDERED: Ringers Solution, Lactated 1,000 ML IVC SCH (16:15)
[2020-09-03] MEDS ORDERED: *HR* Labetalol 20 MG/4 ML SYRINGE IVP PRN (16:43)
[2020-09-03] MEDS: 0.9 % Sodium Chloride 1,000 ML IVC SCH (17:15)
[2020-09-03] MEDS: Piperacillin/Tazobactam 3.375 GM in 0.9 % Sodium Chloride Mini Bag 100 ML IVPB SCH (17:15)
[2020-09-03] MEDS: Insulin LISPRO 300 UNITS/3 ML VIAL SUBQ SCH (17:22)
[2020-09-04] MEDS: Piperacillin/Tazobactam 3.375 GM in 0.9 % Sodium Chloride Mini Bag 100 ML IVPB SCH ×3 (00:15→15:42)
[2020-09-04] MEDS: Insulin LISPRO 300 UNITS/3 ML VIAL SUBQ SCH ×5 (00:15→20:46)
[2020-09-04] MEDS ORDERED: *HR* LORazepam 2 MG/ML VIAL IVP ONE (01:50)
[2020-09-04 03:19] LABS: Basophils % 0.3 %; Eosinophils # 0.2 K/mcL (0.0-0.6); Eosinophils % 2.2 %; Hematocrit 39.8 % (37.5-50.1); Hemoglobin 12.9 g/dL (12.9-16.9); Immature Granulocytes % 0.4 % (0-4); Lymphocytes % 14.1 %; Mean Corpuscular HGB Conc 32.4 g/dL (31.6-35.5); Mean Corpuscular Hemoglobin 27.9 pg (28.0-33.3); Mean Corpuscular Volume 86.1 fL (83.0-100.0); Mean Platelet Volume 11.7 fL (9.4-12.4); Monocytes # 0.8 K/mcL (0.0-1.3); Monocytes % 11.3 %; Neutrophils # 5.1 K/mcL (1.6-8.9); Platelet Count 199 K/mcL (140-400); Red Blood Count 4.62 M/mcL (4.19-5.50); Red Cell Distribution Width 13.9 % (11.5-14.5); Segmented Neutrophils % 71.7 %; White Blood Count 7.2 K/mcL (4.3-11.1)
[2020-09-04 03:28] LABS: Prothrombin Time 23.2 Seconds (9.4-12.1)
[2020-09-04 03:30] LABS: Activated Partial Thrombo Time 36.1 Seconds (26.0-36.0)
[2020-09-04 03:39] LABS: Alanine Aminotransferase 10 Units/L (7-52); Albumin 3.4 g/dL (3.5-5.7); Albumin/Globulin Ratio 1.1 (1.1-2.2); Alkaline Phosphatase 47 Units/L (34-104); Aspartate Amino Transferase 20 Units/L (13-39); BUN/Creatinine Ratio 8 (6-26); Bilirubin,Total 0.6 mg/dL (0.3-1.0); Blood Urea Nitrogen 9 mg/dL (6-20); Calcium 8.5 mg/dL (8.6-10.3); Carbon Dioxide 22 mEq/L (23-29); Chloride 105 mEq/L (98-107); Glucose 130 mg/dL (70-105); Magnesium 1.4 mg/dL (1.6-2.6); Osmolality,Calculated 284 (280-300); Phosphorous 2.3 mg/dL (2.7-4.5); Potassium 3.4 mEq/L (3.5-5.1); Sodium 137 mEq/L (136-145); Total Protein 6.4 g/dL (6.4-8.9); eGFR For African Americans > 60 (> 60); eGFR For Non-African Americans > 60 (> 60)
[2020-09-04] MEDS ORDERED: *HR* Heparin 5,000 UNIT/ML VIAL IVP PRN ×2 (07:27)
[2020-09-04] MEDS ORDERED: Magnesium Sulfate 1 GM/102 ML PIGGYBACK IVPB ONE (07:28)
[2020-09-04] MEDS ORDERED: Potassium Phosphate 44 MEQ in 0.9 % Sodium Chloride 250 ML IVPB ONE (07:28)
[2020-09-04] MEDS ORDERED: Pantoprazole 40 MG VIAL IVP SCH (09:00)
[2020-09-04] MEDS ORDERED: Levothyroxine Sodium 100 MCG VIAL IVP SCH (09:00)
[2020-09-04] MEDS: 0.9 % Sodium Chloride 1,000 ML IVC SCH (09:27)
[2020-09-04] MEDS: Heparin 25,000UNIT/250ML 1/2NS 25,000 UNIT/250 ML IV.SOLN IVC SCH (09:29)
[2020-09-04 10:44] LABS: Hematocrit 40.9 % (37.5-50.1); Hemoglobin 12.9 g/dL (12.9-16.9); Mean Corpuscular HGB Conc 31.5 g/dL (31.6-35.5); Mean Corpuscular Volume 85.7 fL (83.0-100.0); Mean Platelet Volume 11.4 fL (9.4-12.4); Platelet Count 207 K/mcL (140-400); Red Blood Count 4.77 M/mcL (4.19-5.50); Red Cell Distribution Width 13.9 % (11.5-14.5); White Blood Count 7.7 K/mcL (4.3-11.1)
[2020-09-04 10:52] LABS: INR 1.9; Prothrombin Time 21.7 Seconds (9.4-12.1)
[2020-09-04] MEDS ORDERED: *HR* Warfarin 3 MG TABLET PO ONE (18:00)
[2020-09-04] MEDS: Warfarin perPT PO SCH (18:45)
[2020-09-04] MEDS: PARoxetine 20 MG TABLET PO SCH (19:45)
[2020-09-05] MEDS: Piperacillin/Tazobactam 3.375 GM in 0.9 % Sodium Chloride Mini Bag 100 ML IVPB SCH ×4 (01:12→23:31)
[2020-09-05] MEDS: 0.9 % Sodium Chloride 1,000 ML IVC SCH ×2 (01:24→08:04)
[2020-09-05 03:32] LABS: Basophils % 0.5 %; Eosinophils # 0.3 K/mcL (0.0-0.6); Eosinophils % 3.6 %; Hematocrit 38.7 % (37.5-50.1); Hemoglobin 12.4 g/dL (12.9-16.9); Immature Granulocytes % 0.7 % (0-4); Lymphocytes # 1.1 K/mcL (0.6-4.6); Mean Corpuscular Hemoglobin 27.6 pg (28.0-33.3); Mean Platelet Volume 11.9 fL (9.4-12.4); Platelet Count 213 K/mcL (140-400); Red Cell Distribution Width 13.9 % (11.5-14.5); Segmented Neutrophils % 67.2 %; White Blood Count 7.5 K/mcL (4.3-11.1)
[2020-09-05 03:39] LABS: INR 1.8; Prothrombin Time 20.7 Seconds (9.4-12.1)
[2020-09-05 03:51] LABS: BUN/Creatinine Ratio 5 (6-26); Blood Urea Nitrogen 6 mg/dL (6-20); Calcium 8.2 mg/dL (8.6-10.3); Carbon Dioxide 24 mEq/L (23-29); Chloride 106 mEq/L (98-107); Glucose 127 mg/dL (70-105); Osmolality,Calculated 283 (280-300); Phosphorous 2.3 mg/dL (2.7-4.5); Potassium 3.6 mEq/L (3.5-5.1); Sodium 137 mEq/L (136-145); eGFR For African Americans > 60 (> 60); eGFR For Non-African Americans > 60 (> 60)
[2020-09-05] MEDS: Heparin 25,000UNIT/250ML 1/2NS 25,000 UNIT/250 ML IV.SOLN IVC SCH ×2 (04:14→21:29)
[2020-09-05] MEDS: Insulin LISPRO 300 UNITS/3 ML VIAL SUBQ SCH ×4 (08:05→20:44)
[2020-09-05] MEDS: Warfarin perPT PO SCH (17:20)
[2020-09-05] MEDS ORDERED: *HR* Warfarin 3 MG TABLET PO ONE (18:00)
[2020-09-05] MEDS: PARoxetine 20 MG TABLET PO SCH (20:46)
[2020-09-05] MEDS: Budesonide/Formoterol 80/4.5 1 PUFF INH IH SCH (21:45)
[2020-09-06 02:39] LABS: Basophils % 0.6 %; Eosinophils # 0.3 K/mcL (0.0-0.6); Eosinophils % 3.8 %; Hemoglobin 12.3 g/dL (12.9-16.9); Immature Granulocytes % 0.8 % (0-4); Lymphocytes # 1.2 K/mcL (0.6-4.6); Lymphocytes % 16.7 %; Mean Corpuscular HGB Conc 31.5 g/dL (31.6-35.5); Mean Corpuscular Hemoglobin 27.6 pg (28.0-33.3); Mean Corpuscular Volume 87.6 fL (83.0-100.0); Mean Platelet Volume 11.7 fL (9.4-12.4); Monocytes # 0.8 K/mcL (0.0-1.3); Monocytes % 11.2 %; Neutrophils # 4.8 K/mcL (1.6-8.9); Platelet Count 221 K/mcL (140-400); Red Blood Count 4.45 M/mcL (4.19-5.50); Red Cell Distribution Width 14.1 % (11.5-14.5); Segmented Neutrophils % 66.9 %; White Blood Count 7.1 K/mcL (4.3-11.1)
[2020-09-06 02:46] LABS: INR 2.5; Prothrombin Time 27.7 Seconds (9.4-12.1)
[2020-09-06 02:54] LABS: BUN/Creatinine Ratio 3 (6-26); Blood Urea Nitrogen 4 mg/dL (6-20); Calcium 8.4 mg/dL (8.6-10.3); Carbon Dioxide 26 mEq/L (23-29); Chloride 107 mEq/L (98-107); Glucose 132 mg/dL (70-105); Magnesium 1.9 mg/dL (1.6-2.6); Osmolality,Calculated 289 (280-300); Phosphorous 2.5 mg/dL (2.7-4.5); Potassium 3.8 mEq/L (3.5-5.1); Sodium 140 mEq/L (136-145); eGFR For African Americans > 60 (> 60); eGFR For Non-African Americans > 60 (> 60)
[2020-09-06] MEDS: Budesonide/Formoterol 80/4.5 1 PUFF INH IH SCH (07:49)
[2020-09-06] MEDS: Piperacillin/Tazobactam 3.375 GM in 0.9 % Sodium Chloride Mini Bag 100 ML IVPB SCH (08:33)
[2020-09-06] MEDS: Insulin LISPRO 300 UNITS/3 ML VIAL SUBQ SCH ×2 (08:37→12:20)
[2020-09-06 09:53] VITALS: BP 124/79
[2020-09-06] MEDS ORDERED: *HR* Warfarin 3 MG TABLET PO ONE (18:00)
== END 2020-09-06 15:45 | disposition home or self-care (01) | DRG 244 ==
LOC: 3ANU → SUATTDRO 20:29
PROVIDERS: ADMIT Internal Medicine; ATTEND Internal Medicine